=== PATIENT | male | born 1980 | race Caucasian/White ===

== ENCOUNTER 2020-01-18 23:25 | Emergency (ER) | payer OTHER ==
[~2020-01-18] VITALS: Ht 182.9 cm; Wt 104.3 kg
[2020-01-18] MEDS ORDERED: LEXAPRO 10 MG T10 M1 PO (23:39)
[2020-01-19] MEDS ORDERED: HYDROCODON-ACE1 EAC7 PO (00:24)
[2020-01-19] MEDS ORDERED: AUGMENTIN 500-1 EACH PO (00:24)
[2020-01-19 00:32] VITALS: BP 130/89
== END 2020-01-19 00:33 | disposition home or self-care (01) ==
LOC: M.ERS 23:25
DX: S61.231A Puncture wound without foreign body of left index finger without damage to nail, initial encounter (principal); S61.233A Puncture wound without foreign body of left middle finger without damage to nail, initial encounter; S61.237A Puncture wound without foreign body of left little finger without damage to nail, initial encounter; S61.532A Puncture wound without foreign body of left wrist, initial encounter; S51.831A Puncture wound without foreign body of right forearm, initial encounter; S60.311A Abrasion of right thumb, initial encounter; W54.0XXA Bitten by dog, initial encounter; Y93.89 Activity, other specified; Y92.89 Other specified places as the place of occurrence of the external cause; Y99.8 Other external cause status

== ENCOUNTER 2021-02-17 08:17 | Emergency (ER) | payer OTHER ==
[~2021-02-17] VITALS: Ht 182.9 cm; Wt 104.3 kg
[~2021-02-17 08:17] MED LIST: AUGMENTIN 500-1 EACH PO; HYDROCODON-ACE1 EAC7 PO; LEXAPRO 10 MG T10 M1 PO
[2021-02-17] MEDS ORDERED: LIPITOR 10 MG10 M1 PO (08:22)
[2021-02-17 10:13] VITALS: BP 158/88
--- NOTE | 2021-02-17 12:04 | EKG ---
[place] [address] ELECTROCARDIOGRAM REPORT Name: JOHANA LEGER Room: [facility]#: [id number] Admission: 02/17/21 Attend Phys: Discharge: Date of : 80 Date of Service: 02/17/21818 Report #: [id number] THIS REPORT FOR: //name// [facility] ED Test Date: 2021-02-17 Test Time: 08:19:06 Pat Name: JOHANA LEGER Department: Room: Gender: Loss Control Consultant: [place] : 1980 Requested By: Daryn Chang Order Number: [id number] Brianda MD: Pascual Nelson Measurements Intervals [place] Rate: 78 P: 11 TN: 155 QRS: -7 QRSD: 76 T: 25 QT: 376 QTc: 429 Interpretive Statements Sinus rhythm Baseline wander in lead(s) II,III,aVR,aVL,aVF,V1,V2,V4 No previous ECG available for comparison Electronically Signed On 02-17-2021 12:04:32 CDT by Pascual Nelson [email or web address] <ELECTRONICALLY SIGNED> By: Pascual Nelson MD, [facility] 02/17/21 1204 08 08 Pascual Nelson MD, [facility] /EPI
== END 2021-02-17 10:13 | disposition left against medical advice (07) ==
LOC: M.ERS 08:17
DX: Z53.21 Procedure and treatment not carried out due to patient leaving prior to being seen by health care provider (principal)